=== PATIENT | male | born 1975 | race African-American/Black ===

== ENCOUNTER 2019-03-16 00:37 | Emergency (ER) | payer OTHER ==
[2019-03-16 02:47] LABS: #Basophils 0.1 thou/uL (0.0-0.2); #Eosinphils 0.1 thou/uL (0.0-0.7); #Lymphocytes 4.8 thou/uL (1.20-3.40); #Monocytes 0.7 thou/uL (0.11-0.59); #Neutrophils 4.3 thou/uL (1.40-6.50); %Basophils 1.2 % (0.0-1.0); %Lymphocytes 48.2 % (21.0-51.0); %Monocytes 6.9 % (0.0-10.0); %Neutrophils 42.7 % (42.0-75.0); Hemoglobin 15.2 g/dL (14.0-18.0); Mean Corpuscular HGB CONC 31.9 g/dL (32.0-36.0); Mean Corpuscular Hemoglobin 31.6 pg (27.0-31.0); Mean Corpuscular Volume 99.3 fL (78.0-98.0); Mean Platelet Volume 8.7 fL (7.4-10.4); Platelet Count 211 thou/uL (130-400); RBC Distribution Width 12.5 % (11.5-14.5)
[2019-03-16 03:06] LABS: ALT (SGPT) 52 U/L (8-55); AST (SGOT) 36 U/L (5-34); Albumin 3.8 g/dL (3.5-5.0); Alkaline Phosphatase 71 U/L (40-150); Anion Gap 8 mmol/L (10-20); BUN (Urea Nitrogen) 21 mg/dL (8.9-20.6); Bilirubin, Total 0.6 mg/dL (0.2-1.2); Calc. Creatinine Clearance 0 mL/min (70-130); Calcium 11.6 mg/dL (7.8-10.44); Carbon Dioxide 32 mmol/L (22-29); Chloride 104 mmol/L (98-107); Estimated GFR-MDRD 82; Globulin 4.4 g/dL (2.4-3.5); Glucose 97 mg/dL (70-105); Potassium 3.9 mmol/L (3.5-5.1); Protein, Total 8.2 g/dL (6.0-8.3); Sodium 140 mmol/L (136-145)
[2019-03-16 04:15] LABS: Bilirubin Negative (Negative); Blood, Urine Negative (Negative); Clarity CLEAR (Clear); Glucose, Urine (Dipstick) Negative (Negative); Leukocyte Negative (Negative); Nitrite Negative (Negative); Protein, Urine (Dipstick) Trace mg/dL (Neg-Trace); Specific Gravity, Urine 1.028 (1.002-1.036); pH, Urine 5.5 (5.0-9.0)
[2019-03-16] MEDS ORDERED: Ketorolac Tromethamine 30 MG/ML VIAL ONE (04:44)
--- NOTE | 2019-03-16 09:05 | CT ---
ABDOMEN AND PELVIS CT NONCONTRAST: INDICATION: Abdominal pain, right lower back pain. FINDINGS: There is no urolithiasis or obstructive uropathy. Multiple pelvic calcifications are present, althou gh are favored to reflect phleboliths. The urinary bladder is decompressed with wall prominence, del[place]ruz iting assessment. There is limited evaluation of the solid abdominal organs, bowel, lymph nodes, and vasculature on the basis of noncontrast technique. No consolidation at the imaged lung bases. No a cute osseous pathology. There is no free air. IMPRESSION: 1. No urolithiasis or obstructive uropathy. 2. Additional details are described above. Evaluation is limited by noncontrast technique. POS: SABAS
== END 2019-03-16 05:26 | disposition home or self-care (01) ==
LOC: ERS 00:37
DX: R10.31 Right lower quadrant pain (principal); R51 Headache; E11.9 Type 2 diabetes mellitus without complications; F32.9 Major depressive disorder, single episode, unspecified; F17.210 Nicotine dependence, cigarettes, uncomplicated
CPT/HCPCS: 36415; 74176; 80053; 81003; 85025; 96372; J1885

== ENCOUNTER 2019-05-12 20:56 | Emergency (ER) | payer MEDICARE ==
[2019-05-12 21:52] LABS: #Basophils 0.1 thou/uL (0.0-0.2); #Lymphocytes 3.6 thou/uL (1.20-3.40); #Monocytes 1.1 thou/uL (0.11-0.59); #Neutrophils 6.1 thou/uL (1.40-6.50); %Basophils 0.8 % (0.0-1.0); %Eosinophils 0.4 % (0.0-10.0); %Lymphocytes 33.1 % (21.0-51.0); %Monocytes 10.3 % (0.0-10.0); %Neutrophils 55.6 % (42.0-75.0); Hemoglobin 15.6 g/dL (14.0-18.0); Mean Corpuscular HGB CONC 32.6 g/dL (32.0-36.0); Mean Corpuscular Hemoglobin 32.2 pg (27.0-31.0); Mean Corpuscular Volume 98.7 fL (78.0-98.0); Mean Platelet Volume 8.8 fL (7.4-10.4); Platelet Count 179 thou/uL (130-400); RBC Distribution Width 12.7 % (11.5-14.5); Red Blood Cell (RBC) Count 4.86 mill/uL (4.70-6.10)
[2019-05-12 22:13] LABS: Albumin 3.9 g/dL (3.5-5.0); Anion Gap 13 mmol/L (10-20); BUN (Urea Nitrogen) 31 mg/dL (8.9-20.6); Bilirubin, Total 0.7 mg/dL (0.2-1.2); Calc. Creatinine Clearance 0 mL/min (70-130); Calcium 11.7 mg/dL (7.8-10.44); Carbon Dioxide 25 mmol/L (22-29); Chloride 106 mmol/L (98-107); Estimated GFR-MDRD 39; Glucose 90 mg/dL (70-105); Potassium 3.6 mmol/L (3.5-5.1); Protein, Total 8.1 g/dL (6.0-8.3); Sodium 140 mmol/L (136-145)
[2019-05-12 22:14] LABS: ALT (SGPT) 31 U/L (8-55); AST (SGOT) 33 U/L (5-34); Alkaline Phosphatase 63 U/L (40-150); Globulin 4.2 g/dL (2.4-3.5)
[2019-05-12 22:37] LABS: Bilirubin Moderate (Negative); Blood, Urine Trace (Negative); Clarity Cloudy (Clear); Glucose, Urine (Dipstick) Negative (Negative); Leukocyte Negative (Negative); Nitrite Negative (Negative); Protein, Urine (Dipstick) > or equal to 300 mg/dL (Neg-Trace); pH, Urine 5.5 (5.0-9.0)
[2019-05-12 22:40] LABS: Specific Gravity, Urine 1.028 (1.002-1.036)
[2019-05-12 22:41] LABS: Bacteria/HPF None Seen HPF (None Seen); WBC/HPF 0-3 HPF (0-3)
== END 2019-05-12 23:49 | disposition home or self-care (01) ==
LOC: ERS 20:56
DX: I10 Essential (primary) hypertension (principal); E11.9 Type 2 diabetes mellitus without complications; F32.9 Major depressive disorder, single episode, unspecified; F17.210 Nicotine dependence, cigarettes, uncomplicated; Z79.899 Other long term (current) drug therapy
CPT/HCPCS: 36415; 80053; 81003; 81015; 83880; 85025; 99283

== ENCOUNTER 2019-11-14 08:02 | Emergency (ER) | payer MEDICARE ==
[2019-11-14] MEDS ORDERED: Ketorolac Tromethamine 30 MG/ML VIAL ONE (08:39)
[2019-11-14 09:43] LABS: Bilirubin Negative (Negative); Blood, Urine Negative (Negative); Clarity Clear (Clear); Glucose, Urine (Dipstick) Normal (Negative); Leukocyte Negative Leu/uL (Negative); Nitrite Negative (Negative); Protein, Urine (Dipstick) 20 mg/dL (Neg-Trace); Urobilinogen Normal mg/dL (Less than 2)
[2019-11-14 09:49] LABS: Anion Gap 7 mmol/L (10-20); BUN (Urea Nitrogen) 15 mg/dL (8.9-20.6); Calc. Creatinine Clearance 0 mL/min (70-130); Calcium 10.7 mg/dL (7.8-10.44); Carbon Dioxide 28 mmol/L (22-29); Chloride 107 mmol/L (98-107); Estimated GFR-MDRD Greater than 90; Glucose 98 mg/dL (70-105); Sodium 138 mmol/L (136-145)
== END 2019-11-14 10:05 | disposition home or self-care (01) ==
LOC: ERS 08:02
DX: S80.811A Abrasion, right lower leg, initial encounter (principal); M54.5 Low back pain; E11.9 Type 2 diabetes mellitus without complications; F32.9 Major depressive disorder, single episode, unspecified; F17.210 Nicotine dependence, cigarettes, uncomplicated; Z79.899 Other long term (current) drug therapy; W22.8XXA Striking against or struck by other objects, initial encounter
CPT/HCPCS: 36415; 80048; 81003; 83880; 87086; 96374; J1885

== ENCOUNTER 2021-01-13 11:01 | Emergency (ER) | payer MEDICARE ==
[~2021-01-13 11:01] MED LIST: Iopamidol-370 76% 500 ML 1 ML ONE
[2021-01-13 12:48] LABS: #Basophils 0.1 thou/uL (0.0-0.2); #Lymphocytes 1.3 thou/uL (1.20-3.40); #Monocytes 0.9 thou/uL (0.11-0.59); #Neutrophils 3.8 thou/uL (1.40-6.50); %Eosinophils 0.2 % (0.0-10.0); %Monocytes 14.1 % (0.0-10.0); %Neutrophils 62.8 % (42.0-75.0); Hemoglobin 16.2 g/dL (14.0-18.0); Mean Corpuscular HGB CONC 33.1 g/dL (32.0-36.0); Mean Corpuscular Volume 99.6 fL (78.0-98.0); Platelet Count 164 thou/uL (130-400); RBC Distribution Width 12.5 % (11.5-14.5); Red Blood Cell (RBC) Count 4.92 mill/uL (4.70-6.10); White Blood Cell (WBC) Count 6.1 thou/uL (4.8-10.8)
[2021-01-13 12:49] LABS: Bacteria/HPF None Seen HPF (None Seen); Bilirubin Negative (Negative); Blood, Urine Trace (Negative); Clarity Clear (Clear); Glucose, Urine (Dipstick) Normal (Negative); Ketone, Urine Negative (Negative); Leukocyte Negative Leu/uL (Negative); Nitrite Negative (Negative); Protein, Urine (Dipstick) 10 mg/dL (Neg-Trace); Specific Gravity, Urine 1.017 (1.002-1.036); Squamous Epithelial None Seen HPF (0-3); Urobilinogen Normal mg/dL (Less than 2); WBC/HPF 0-3 HPF (0-3); pH, Urine 6.5 (5.0-9.0)
[2021-01-13] MEDS ORDERED: Ketorolac Tromethamine 30 MG/ML VIAL ONE (13:05)
[2021-01-13 13:06] LABS: ALT (SGPT) 78 U/L (8-55); AST (SGOT) 61 U/L (5-34); Albumin 3.9 g/dL (3.5-5.0); Alkaline Phosphatase 83 U/L (40-110); Anion Gap 12 mmol/L (10-20); BUN (Urea Nitrogen) 11 mg/dL (8.9-20.6); Bilirubin, Total 0.3 mg/dL (0.2-1.2); Calc. Creatinine Clearance 0 mL/min (70-130); Calcium 10.9 mg/dL (7.8-10.44); Carbon Dioxide 23 mmol/L (22-29); Chloride 104 mmol/L (98-107); Globulin 5.1 g/dL (2.4-3.5); Glucose 103 mg/dL (70-105); Magnesium 2.3 mg/dL (1.6-2.6); Potassium 4.4 mmol/L (3.5-5.1); Sodium 135 mmol/L (136-145)
--- NOTE | 2021-01-13 14:30 | CT ---
CT ABDOMEN AND PELVIS PERFORMED WITHOUT CONTRAST ENHANCEMENT: History: Abdominal pain for the last two weeks. Difficulty with bowel movements. FINDINGS: The lung bases are clear. Liver shows fatty change. Spleen is within normal limits. Pancreas and gallbladder regions appear unr emarkable. Right and left adrenal glands and right and left kidneys are normal in size. Hypodensities involving the kidneys are most likely small cysts. No obstruction. No significant periaortic or mesenteric radha opathy. Mild amount of stool present within the right colon. The left colon is relatively decompresse d. CT OF PELVIS PERFORMED WITH CONTRAST ENHANCEMENT: No evidence of adenopathy, mass, or free fluid. Appendix is difficult to definitely identify but I se e no evidence for appendicitis. Review of osseous structures show some mild arthritic change of the spine. IMPRESSION: 1. Suggestion of an element of fatty change to the liver. No acute findings of the abdomen or pe lvis. POS: OFF
== END 2021-01-13 15:10 | disposition home or self-care (01) ==
LOC: ERS 11:01
DX: K59.00 Constipation, unspecified (principal); R52 Pain, unspecified; K76.0 Fatty (change of) liver, not elsewhere classified; I10 Essential (primary) hypertension; E11.9 Type 2 diabetes mellitus without complications; F17.210 Nicotine dependence, cigarettes, uncomplicated; Z79.899 Other long term (current) drug therapy
CPT/HCPCS: 74177; 80053; 81003; 81015; 83735; 85025; 93005; 96372; 96374; J0500; J1885; Q9967

== ENCOUNTER 2022-07-31 13:33 | Outpatient (CLI) | payer OTHER, SELFPAY ==
[2022-07-31] MEDS ORDERED: Magnevist 469MG/ML 20 ML VIAL ONE (16:12)
== END 2022-07-31 13:34 | disposition home or self-care (01) ==
LOC: MRI 13:33
PROVIDERS: ATTEND Family Medicine
DX: G43.019 Migraine without aura, intractable, without status migrainosus (principal); G93.5 Compression of brain
CPT/HCPCS: 70553; A9579

== ENCOUNTER 2025-05-24 12:00 | Outpatient (CLI) | payer OTHER, MEDICAID | END 2025-05-24 12:01 | disposition home or self-care (01) | LOC: RAD 12:00 | PROVIDERS: ATTEND Internal Medicine | DX: C90.10 Plasma cell leukemia not having achieved remission (principal); R30.0 Dysuria | CPT/HCPCS: 71046 ==